=== PATIENT | male | born 2000 | race Two or more races ===

== ENCOUNTER 2023-08-13 14:39 | Emergency (ER) | payer OTHER ==
[~2023-08-13] VITALS: Ht 175.3 cm; Wt 70.0 kg
[2023-08-13 14:41] VITALS: TEMP 98; O2SAT 100
[2023-08-13] MEDS ORDERED: ONDANSETRON 4MG ODT PO ONE (16:00)
[2023-08-13 16:17] LABS: BASOPHILS % 0.3 % (0.0-2.0); EOSINOPHILS % 0.2 % (0.0-5.0); HEMATOCRIT. 45.7 % (42.0-52.0); HEMOGLOBIN. 15.5 g/dL (14.0-18.0); MEAN CORPUSCULAR HEMOGLOBIN 29.8 pg (28.0-32.0); MEAN CORPUSCULAR VOLUME 87.8 fL (80.0-94.0); MONOCYTES % 7.1 % (2.0-8.0); NEUTROPHILS % 79.4 % (40.0-76.0); PLATELET 311 x1000/uL (130-400); RED CELL DISTRIBUTION WIDTH 13.2 % (11.6-14.6); WHITE BLOOD COUNT 11.2 x1000/uL (4.5-11.0)
[2023-08-13 16:26] LABS: CHLORIDE 104 mEq/L (98-107); POTASSIUM 3.7 mEq/L (3.5-5.1); SODIUM 138 mEq/L (136-145)
[2023-08-13 16:27] LABS: CALCIUM 9.8 mg/dL (8.7-10.4); CARBON DIOXIDE 25 mEq/L (21-32)
[2023-08-13 16:32] LABS: CREATININE 0.9 mg/dL (0.6-1.3); GLUCOSE 114 mg/dL (70-105); UREA NITROGEN BLOOD 6 mg/dL (9-23)
[2023-08-13] MEDS: LORAZEPAM 1MG TABLET PO ONE (18:03)
[2023-08-13] MEDS ORDERED: AMOX-494 MT (18:41)
[2023-08-13] MEDS ORDERED: LORA-250 MT (18:41)
[2023-08-13 20:00] VITALS: BP 127/74; PULSE 74; RESP 12
[2023-08-13] MEDS: ONDANSETRON 4MG ODT PO NR (20:10)
== END 2023-08-13 20:24 | disposition home or self-care (01) ==
LOC: ER 14:39
DX: R20.2 Paresthesia of skin (principal); J32.9 Chronic sinusitis, unspecified; R11.2 Nausea with vomiting, unspecified; F41.9 Anxiety disorder, unspecified
CPT/HCPCS: 99284; 70450; 80048; 85025; 36415; Q0162